=== PATIENT | female | born 1935 | race Two or more races ===

== ENCOUNTER 2021-10-31 08:41 | Inpatient (IN) | payer OTHER ==
[~2021-10-31] VITALS: Ht 162.6 cm; Wt 64.4 kg
[2021-10-31 10:11] LABS: Basophils # (auto) 0 10 ^3/uL (0-0.2); Basophils % (auto) 0.4 % (0.0-2.0); Eosinophils # (auto) 0 10 ^3/uL (0-0.8); Eosinophils % (auto) 0.1 % (0.0-7.0); Hematocrit 47.4 % (36.0-46.0); Hemoglobin 15.5 g/dL (12.2-16.2); Lymphocytes # (auto) 1.9 10 ^3/uL (0.4-5.4); Lymphocytes % (auto) 18.6 % (10.0-50.0); Mean Corpuscular Hemoglobin 30.3 pg (28.0-32.0); Mean Corpuscular Hgb Conc. 32.7 g/dL (32.0-36.0); Mean Corpuscular Volume 92.6 fL (80.0-100.0); Monocytes # (auto) 0.8 10 ^3/uL (0-1.3); Monocytes % (auto) 7.6 % (0.0-12.0); Neutrophils # (auto) 7.4 10 ^3/uL (1.6-8.6); Neutrophils % (auto) 73.3 % (37.0-80.0); Nucleated Red Blood Cells % 0.1 %; Red Blood Cells 5.11 10^6/uL (4.0-5.20); Red Cell Distribution Width 14.1 % (11.8-14.3); White Blood Cell 10.1 10^3/uL (4.4-10.8)
[2021-10-31 10:32] LABS: Potassium 4.1 mmol/L (3.5-5.1)
[2021-10-31 10:38] LABS: Albumin 3.5 g/dL (3.4-5.0); BUN/Creatinine Ratio 17.7; Bilirubin, Total 0.6 mg/dL (0.2-1.0); Calcium 9.3 mg/dL (8.5-10.1); Magnesium 2.2 mg/dL (1.6-2.6); Total Protein 7.4 g/dL (6.4-8.2)
[2021-10-31 11:41] LABS: Urine Bacteria FEW /hpf (None Seen); Urine Blood 2+ /uL (Negative); Urine Mucus FEW (None Seen); Urine Specific Gravity 1.017 (1.001-1.035); Urine WBC 2256 /hpf (0 - 5); Urine WBC Clumps PRESENT /hpf (None Seen)
[2021-10-31] MEDS ORDERED: metroNIDAZOLE 500MG/100ML 100 ML IV ONE (12:15)
[2021-10-31] MEDS ORDERED: SODIUM CHLORIDE 0.9% 1,000 ML IV ONE ×2 (12:15)
[2021-10-31] MEDS ORDERED: cefTRIAXone 1GM/50ML D5W 50 ML IV ONE (12:15)
[2021-10-31 12:55] LABS: INR 0.97 (0.9-1.15); Partial Thromboplastin Time 26.6 sec (24.6-33.4)
[2021-10-31] MEDS ORDERED: ONDANSETRON HCL 4 MG/2 ML VIAL IV PRN (18:15)
[2021-10-31] MEDS: SOD CHL 0.45% 1,000 ML IV SCH (19:06)
[2021-10-31] MEDS: hydrALAZINE HCL 20 MG/ML VL IV PRN (19:40)
[2021-10-31] MEDS: PANTOPRAZOLE 40 MG/10 ML VIAL INJ IV SCH (22:00)
[2021-10-31] MEDS: metroNIDAZOLE 500MG/100ML 100 ML IV SCH (22:00)
[2021-11-01] MEDS: metroNIDAZOLE 500MG/100ML 100 ML IV SCH ×3 (05:30→21:31)
[2021-11-01 05:59] LABS: Basophils # (auto) 0 10 ^3/uL (0-0.2); Basophils % (auto) 0.5 % (0.0-2.0); Eosinophils # (auto) 0 10 ^3/uL (0-0.8); Eosinophils % (auto) 0.4 % (0.0-7.0); Hematocrit 43.5 % (36.0-46.0); Hemoglobin 14.6 g/dL (12.2-16.2); Lymphocytes # (auto) 2.7 10 ^3/uL (0.4-5.4); Lymphocytes % (auto) 28.5 % (10.0-50.0); Mean Corpuscular Hemoglobin 30.6 pg (28.0-32.0); Mean Corpuscular Hgb Conc. 33.5 g/dL (32.0-36.0); Mean Corpuscular Volume 91.3 fL (80.0-100.0); Monocytes # (auto) 0.6 10 ^3/uL (0-1.3); Monocytes % (auto) 6.4 % (0.0-12.0); Neutrophils # (auto) 6.1 10 ^3/uL (1.6-8.6); Neutrophils % (auto) 64.2 % (37.0-80.0); Red Blood Cells 4.77 10^6/uL (4.0-5.20); Red Cell Distribution Width 14.1 % (11.8-14.3); White Blood Cell 9.5 10^3/uL (4.4-10.8)
[2021-11-01 06:14] LABS: Albumin 3.2 g/dL (3.4-5.0); Calcium 8.6 mg/dL (8.5-10.1)
[2021-11-01 06:18] LABS: Bilirubin, Total 0.6 mg/dL (0.2-1.0)
[2021-11-01] MEDS: SOD CHL 0.45% 1,000 ML IV SCH ×2 (07:34→20:55)
[2021-11-01] MEDS: cefTRIAXone 1GM/50ML D5W 50 ML IV SCH ×2 (08:34→09:17)
[2021-11-01] MEDS: PANTOPRAZOLE 40 MG/10 ML VIAL INJ IV SCH ×2 (08:34→21:30)
[2021-11-01] MEDS: ENOXAPARIN SOD 30 MG/0.3 ML SYRINGE SC SCH (08:35)
[2021-11-01 11:30] VITALS: BP 166/61
[2021-11-01 11:33] VITALS: BP 151/60
[2021-11-01] MEDS ORDERED: NIFE60TA61 PO (11:39)
[2021-11-01] MEDS ORDERED: TOLT2CAP PO (11:39)
[2021-11-01] MEDS ORDERED: ATEN25TA PO (11:39)
[2021-11-01] MEDS ORDERED: PRAV20TA3 PO (11:39)
[2021-11-01] MEDS ORDERED: MEMA1TAB3 PO (11:39)
[2021-11-01] MEDS ORDERED: LISI40TA11 PO (11:39)
[2021-11-01 16:00] VITALS: BP 175/60
[2021-11-01 18:45] VITALS: BP 155/93
[2021-11-01 22:00] VITALS: BP 141/58
[2021-11-01] MEDS ORDERED: PRAVASTATIN SODIUM 20 MG TAB PO SCH (22:00)
[2021-11-02 05:00] VITALS: BP 164/62
[2021-11-02] MEDS: SOD CHL 0.45% 1,000 ML IV SCH (05:13)
[2021-11-02] MEDS: metroNIDAZOLE 500MG/100ML 100 ML IV SCH ×2 (05:13→13:49)
[2021-11-02 06:39] VITALS: BP 150/72
[2021-11-02 09:00] VITALS: BP 164/58
[2021-11-02] MEDS: cefTRIAXone 1GM/50ML D5W 50 ML IV SCH (09:07)
[2021-11-02] MEDS: PANTOPRAZOLE 40 MG/10 ML VIAL INJ IV SCH (09:07)
[2021-11-02] MEDS: ENOXAPARIN SOD 30 MG/0.3 ML SYRINGE SC SCH (09:07)
[2021-11-02] MEDS ORDERED: ATENOLOL 25 MG TAB PO SCH (10:00)
[2021-11-02] MEDS ORDERED: NIFEdipine ER 30 MG TAB PO SCH (10:00)
[2021-11-02] MEDS ORDERED: LISINOPRIL 20 MG TAB PO SCH (10:00)
[2021-11-02] MEDS: hydrALAZINE HCL 20 MG/ML VL IV PRN (12:35)
[2021-11-02 13:35] VITALS: BP 132/65
[2021-11-02 16:37] VITALS: BP 140/41
[2021-11-02] MEDS ORDERED: LEVO500T31 PO (16:37)
[2021-11-02] MEDS ORDERED: METR500T PO (16:37)
[2021-11-02 17:13] VITALS: BP 140/41
== END 2021-11-02 18:00 | disposition home or self-care (01) | DRG 378 ==
LOC: ER 08:41 → OVERFLOW 18:02 → WEST WING 11-01 11:17
PROVIDERS: ADMIT Registered Nurse; ATTEND Internal Medicine
DX: K57.93 Diverticulitis of intestine, part unspecified, without perforation or abscess with bleeding (principal); N39.0 Urinary tract infection, site not specified; E86.0 Dehydration; I12.9 Hypertensive chronic kidney disease with stage 1 through stage 4 chronic kidney disease, or unspecified chronic kidney disease; K59.00 Constipation, unspecified; N18.32 Chronic kidney disease, stage 3b; E78.5 Hyperlipidemia, unspecified; R31.9 Hematuria, unspecified; F03.90 Unspecified dementia, unspecified severity, without behavioral disturbance, psychotic disturbance, mood disturbance, and anxiety; Z88.0 Allergy status to penicillin
CPT/HCPCS: 36415; 71045; 74176; 80053; 81001; 83605; 83735; 84484; 85025; 85610; 85730; 86850; 86900; 86901; 87040; 87086; 93005; 96365; 96367; C9113; G0378; J0696; J3490